=== PATIENT | female | born 1995 | race Caucasian/White ===

== ENCOUNTER 2017-02-05 05:37 | Emergency (ER) | payer BC ==
[~2017-02-05 05:37] MED LIST: BIRTH CONTROL PILL; CLARITIN10 MG PO; CLEOCIN PO; MACROBID100 M1 PO; MONISTAT 11 EACH VAG; PHENERGAN DM1 ML PO; ZITHROMAX PO
[2017-02-05 05:57] LABS: URINE SOURCE CLEAN CATCH
[2017-02-05 06:00] LABS: MICRO INDICATED? YES; URINE APPEARANCE CLEAR; URINE BILIRUBIN NEG (NEG); URINE BLOOD NEG (NEG); URINE COLOR YELLOW; URINE GLUCOSE 50 MG/DL (NORM); URINE KETONE NEG (NEG); URINE LEUKOCYTE ESTERASE NEG (NEG); URINE NITRATE POS (NEG); URINE PH 6.5 (5-8); URINE PROTEIN NEG (NEG); URINE SPECIFIC GRAVITY <=1.005 (1.003-1.035)
[2017-02-05 06:01] LABS: CULTURE INDICATED? YES; URINE BACTERIA 1+ (NEG); URINE SQUAMOUS EPITHELIAL CELL OCCAS /[HPF]; URINE WBC 0-2 /[HPF] (0-5)
== END 2017-02-05 06:15 | disposition home or self-care (01) ==
LOC: SED 05:37
PROVIDERS: Emergency Medicine
DX: N39.0 Urinary tract infection, site not specified (principal); F17.200 Nicotine dependence, unspecified, uncomplicated
CPT/HCPCS: 81003; 82947; 84703; 87086; 99282

== ENCOUNTER 2017-04-22 22:08 | Emergency (ER) | payer BC ==
[~2017-04-22] VITALS: Ht 177.8 cm; Wt 59.0 kg
[2017-04-22] MEDS ORDERED: CHANTIX1 MG PO (22:25)
[2017-04-22] MEDS ORDERED: MACROBID100 M1 PO (22:25)
[2017-04-22 23:18] LABS: URINE SOURCE CLEAN CATCH
[2017-04-22 23:22] LABS: URINE APPEARANCE CLEAR; URINE BLOOD TRACE-INTACT (NEG); URINE COLOR ORANGE; URINE KETONE NEG (NEG); URINE LEUKOCYTE ESTERASE NEG (NEG); URINE NITRATE POS (NEG); URINE PH 5.5 (5-8); URINE PROTEIN 2+ (NEG)
[2017-04-22 23:24] LABS: URINE GLUCOSE 50 MG/DL (NORM)
[2017-04-22 23:25] LABS: MICRO INDICATED? YES; URINE BACTERIA 1+ (NEG); URINE BILIRUBIN NEG (NEG); URINE SQUAMOUS EPITHELIAL CELL OCCAS /[HPF]
[2017-04-22 23:26] LABS: URINE MUCUS PRESENT
== END 2017-04-22 23:59 | disposition home or self-care (01) ==
LOC: SED 22:08
PROVIDERS: Emergency Medicine
DX: N39.0 Urinary tract infection, site not specified (principal); F17.200 Nicotine dependence, unspecified, uncomplicated; Z88.8 Allergy status to other drugs, medicaments and biological substances; Z79.899 Other long term (current) drug therapy
CPT/HCPCS: 81003; 84703; 87086; 99283